=== PATIENT | male | born 1975 | race Two or more races ===

== ENCOUNTER 2018-11-03 12:21 | Emergency (ER) | payer SELFPAY ==
[~2018-11-03] VITALS: Ht 180.3 cm; Wt 92.1 kg
[2018-11-03] MEDS ORDERED: CLONIDINE HCL 0.1 MG TAB PO ONE (13:30)
[2018-11-03] MEDS ORDERED: KETOROLAC TROMETHAMINE 60 MG/2 ML VIAL IM ONE (13:30)
[2018-11-03] MEDS ORDERED: HYDROCODONE/APAP 7.5MG-325MG 1 EA TAB PO ONE (13:30)
[2018-11-03] MEDS ORDERED: KETOROLAC TROMETHAMINE 30 MG/ML VIAL IV ONE (13:30)
--- NOTE | 2018-11-03 14:21 | NUR ---
DR. MAK INFORMED OF PT'S B/P, ORDERED NOT TO GIVE CLONIDINE AT THIS TIME. PT AWARE OF THIS IS WELL PRIMARY NURSE FELIX CARR.
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
[2018-11-03 14:56] VITALS: BP 149/101
== END 2018-11-03 15:14 | disposition home or self-care (01) ==
LOC: ER 12:21
DX: M25.512 Pain in left shoulder (principal); M54.12 Radiculopathy, cervical region; I10 Essential (primary) hypertension; F17.210 Nicotine dependence, cigarettes, uncomplicated
CPT/HCPCS: 99283; J1885